=== PATIENT | female | born 1980 | race Caucasian/White ===

== ENCOUNTER 2016-07-03 10:26 | Day surgery (SDC) | payer BC ==
[2016-07-03] VITALS (11 sets, daily range): BP systolic 100–163; BP diastolic 59–80; PULSE 62–96; RESP 16–24; Ht 172.7 cm; Wt 96.6 kg
[~2016-07-03] VITALS: Ht 172.7 cm; Wt 96.6 kg
[~2016-07-03 10:26] MED LIST: CEFAZOLIN 1 GM INJ ONE; CEFAZOLIN 2 GM/50 ML (PMX) 50 ML IVPB ONE; ONDANSETRON 4 MG INJ ONE; SOD CHLORIDE 0.9% 1,000 ML IV SCH
[2016-07-03 11:32] LABS: ADD SCAN DIFF NO
[2016-07-03 11:39] LABS: BASOPHILS % 0.3 % (0.0-2.0); EOSINOPHILS # 0.1 10^3/ul (0.0-0.5); EOSINOPHILS % 0.8 % (0.0-7.0); HEMATOCRIT 42.7 % (37.0-47.0); HEMOGLOBIN 14.7 g/dl (12.0-16.0); LYMPHOCYTES # 1.4 10^3/ul (0.8-2.9); LYMPHOCYTES % 20.8 % (15.0-51.0); MEAN CORPUSCULAR HEMOGLOBIN 30.1 pg (29.0-33.0); MEAN CORPUSCULAR HGB CONC 34.4 g/dl (32.0-37.0); MEAN CORPUSCULAR VOLUME 87.3 fl (82.0-101.0); MEAN PLATELET VOLUME 11.7 fl (7.4-10.4); MONOCYTE # 0.5 10^3/ul (0.3-0.9); MONOCYTES % 7.2 % (0.0-11.0); NEUTROPHIL # 4.6 10^3/ul (1.6-7.5); NEUTROPHILS % 70.6 % (39.0-77.0); PLATELET COUNT 222 10^3/UL (140-415); RED BLOOD COUNT 4.89 10^6/ul (4.20-5.40); RED CELL DISTRIBUTION WIDTH 12.1 % (11.5-14.5); WHITE BLOOD COUNT 6.5 10^3/ul (4.8-10.8)
[2016-07-03 11:43] LABS: PROTIME 13.2 Sec (12.2-14.2)
[2016-07-03 11:44] LABS: PARTIAL THROMBOPLASTIN TIME 31.8 Sec (25.0-35.0)
[2016-07-03 11:50] LABS: CALCIUM 9.5 mg/dl (8.4-10.2); CREATININE 0.61 mg/dl (0.44-1.00); POTASSIUM 4.2 mmol/L (3.5-5.1)
[2016-07-03] MEDS ORDERED: FENTAnyl 50 MCG/ML VIAL ONE (12:24)
[2016-07-03] MEDS ORDERED: GLYCOPYRROLATE 0.4 MG INJ ONE (12:24)
[2016-07-03] MEDS ORDERED: LIDOCAINE 2% (SDV) 5 ML INJ ONE (12:24)
[2016-07-03] MEDS ORDERED: PROPOFOL 20 ML ONE (12:24)
[2016-07-03] MEDS ORDERED: ROCURONIUM 50 MG INJ ONE (12:24)
[2016-07-03] MEDS ORDERED: MIDAZOLAM 1 MG/ML 2 ML INJ ONE (12:24)
[2016-07-03] MEDS ORDERED: NEOSTIGMINE 3 MG/3 ML SYRINGE ONE (12:24)
[2016-07-03] MEDS ORDERED: HYDROCODONE/APAP (7.5/325) TAB PO PRN (13:30)
[2016-07-03] MEDS ORDERED: FENTAnyl 50 MCG/ML VIAL IV PRN ×4 (14:00→14:30)
[2016-07-03] MEDS ORDERED: HYDROmorphONE (0.2 MG/ML) 10ML SYG IV PRN ×5 (14:00→14:30)
[2016-07-03] MEDS ORDERED: morphine (1 MG/ML) 10ML SYRINGE IV PRN ×2 (14:00)
[2016-07-03] MEDS ORDERED: morphine (1 MG/ML) 10ML SYRINGE IV ONE (14:07)
--- NOTE | 2016-07-03 14:09 | OPR ---
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 OPERATION PERFORMED: Left partial mastectomy with resection of abscess cavity. ANESTHESIA: General. ANESTHESIOLOGIST: Dr. Greene SURGEON: Dr. Quoc Camarena IN STORE REPRESENTATIVE: Dr. Espinosa INDICATIONS FOR PROCEDURE: The patient is a 35-year-old female who presented with a chronically placido ining abscess cavity, which persisted in spite treatment with antibiotics. 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 She was counseled as to the risks versus benefits of definitive rese ction. She consented and was scheduled for surgery. DESCRIPTION OF PROCEDURE: The patient was brought to the operating theater and placed under general anesthesia. The left breast was prepped and draped in the usual sterile fashion. The abscess site was at approximately the 9 o'clock to 10 o'clock location. A periareolar incision was demarcated a nd then extended into a small elliptical incision, to include the region of skin change and open placido inage. The incision was carried out with a #10 blade scalpel and the subcutaneous tissue was dissect ed with cautery. Skin hooks were used to elevate the skin edges and wide circumferential dissection of the tissue associated with the abscess cavity took place. The specimen was transected, oriented , and sent for permanent pathologic analysis. The wound was irrigated. Minimal bleeding was contro lled with cautery, and the skin was then reapproximated with a deep dermal layer of 4-0 Vicryl sutur es in interrupted fashion, followed by final skin approximation with 5-0 PDS in subcuticular fashion . Benzoin and Steri-Strips were then applied. The patient tolerated the procedure well. Estimated blood loss was 10 mL. There were no complications and the patient was transported in [facility] to the recovery room. Dictated By: QUOC PIERRE/JASSON Conf#: [id number] DID#: [id number]
[2016-07-03] MEDS: morphine (1 MG/ML) 10ML SYRINGE IV PRN ×2 (14:11→14:17)
[2016-07-03] MEDS ORDERED: PROCHLORPERAZINE 10 MG INJ IV PRN (14:30)
[2016-07-03] MEDS ORDERED: METOCLOPRAMIDE 10 MG INJ IV PRN (14:30)
[2016-07-03] MEDS ORDERED: OXYCODONE/ACETAMINOPHEN (5/325) TAB PO PRN ×2 (14:30)
[2016-07-03] MEDS ORDERED: MEPERIDINE 25 MG INJ IV PRN (14:30)
[2016-07-03] MEDS ORDERED: DIPHENHYDRAMINE 50 MG INJ IV PRN (14:30)
[2016-07-03] MEDS ORDERED: ONDANSETRON 4 MG INJ IV PRN (14:30)
[2016-07-03] MEDS ORDERED: KETOROLAC 15 MG INJ IV ONE (14:30)
== END 2016-07-03 15:00 | disposition home or self-care (01) ==
LOC: SDS 10:26
PROVIDERS: ATTEND Surgery Surgical Oncology
DX: N61.1 Abscess of the breast and nipple (principal); L90.5 Scar conditions and fibrosis of skin
CPT/HCPCS: 19301; 80048; 84703; 85025; 85610; 85730; 88307; J0690; J1885; J2250; J2270; J2405; J2710; J3010; Z7512; Z7610